=== PATIENT | female | born 1990 | race Caucasian/White ===

== ENCOUNTER 2017-06-12 11:00 | Day surgery (SDC) | payer MEDICAID ==
[~2017-06-12] VITALS: Ht 154.9 cm; Wt 63.5 kg
[2017-06-12 11:23] VITALS: BP_SYST 114
[2017-06-12] MEDS ORDERED: ONDANSETRON HCL 4 MG/2 ML VIAL IVP ONE (11:31)
[2017-06-12] MEDS ORDERED: LR 1,000 ML IV.SOLN IV ONE (11:31)
[2017-06-12] MEDS ORDERED: MIDAZOLAM HCL 5 MG/5 ML VIAL IVP ONE (11:31)
[2017-06-12] MEDS ORDERED: KETOROLAC TROMETHAMINE 30 MG VIAL IVP ONE (11:31)
[2017-06-12] MEDS ORDERED: fentaNYL CITRATE 250 MCG/5 ML AMP IV ONE (11:31)
[2017-06-12] MEDS ORDERED: CEFAZOLIN 2 GM IVPB PREMIX 50 ML IV ONE (11:31)
[2017-06-12] MEDS ORDERED: PROPOFOL 200MG/ 20ML VIAL (DIPRIVAN) IV ONE (11:31)
[2017-06-12] MEDS ORDERED: ROCURONIUM BROMIDE 10 MG/ML (ZEMURON) IV ONE (11:31)
[2017-06-12] MEDS ORDERED: NS 50 ML BAG IV ONE (11:31)
[2017-06-12] MEDS ORDERED: NS IRRIG SOLN 1000 ML IR ONE (11:31)
[2017-06-12] MEDS ORDERED: SEVOFLURANE 15 MIN GAS INH ONE (11:31)
[2017-06-12 11:48] LABS: BASOPHILS # (AUTO) 0.1 K/uL (0.0-0.2); BASOPHILS % (AUTO) 0.6 % (0.0-2.0); EOSINOPHILS # (AUTO) 0.4 K/uL (0.0-0.4); EOSINOPHILS % (AUTO) 4.6 % (0.0-4.0); HEMATOCRIT 39.4 % (36-48); HEMOGLOBIN 12.8 g/dL (12.0-16.0); LYMPHOCYTES # (AUTO) 2.7 K/uL (1.0-5.5); LYMPHOCYTES % (AUTO) 32.6 % (20.5-51.5); MEAN CORPUSCULAR HEMOGLOBIN 27 pg (27-31); MEAN CORPUSCULAR HGB CONC 33 % (32-36); MEAN CORPUSCULAR VOLUME 83 fL (79.0-98.0); MONOCYTES # (AUTO) 0.7 K/uL (0.0-1.0); MONOCYTES % (AUTO) 7.8 % (1.7-9.3); NEUTROPHILS # (AUTO) 4.5 K/uL (1.8-7.7); NEUTROPHILS % (AUTO) 54.4 % (40.0-70.0); PLATELET COUNT (AUTO) 244 K/uL (130-430); RED BLOOD CELL COUNT(AUTO) 4.75 MIL/uL (4.2-6.2); RED CELL DISTRIBUTION WIDTH 18.2 % (9.0-15.0); WHITE BLOOD COUNT (AUTO) 8.4 K/uL (4.8-10.8)
[2017-06-12 11:55] LABS: BILIRUBIN,URINE NEGATIVE (NEGATIVE); BLOOD, URINE NEGATIVE (NEGATIVE); CLARITY/URINE CLEAR (CLEAR); COLOR,URINE YELLOW (YELLOW); GLUCOSE,URINE NEGATIVE (NEGATIVE); KETONES,URINE NEGATIVE (NEGATIVE); LEUKOCYTE ESTERASE ,URINE NEGATIVE (NEGATIVE); NITRITE, URINE NEGATIVE (NEGATIVE); PROTEIN URINE NEGATIVE (NEGATIVE); UROBILINOGEN,URINE 0.2 (0.2-1.0)
[2017-06-12 11:56] LABS: CALCIUM 9.1 mg/dL (8.4-11.0); CREATININE 0.48 mg/dL (0.55-1.30); POTASSIUM 4.5 mmol/L (3.5-5.1)
[2017-06-12 12:01] LABS: ALBUMIN 3.9 g/dL (3.4-4.8); TOTAL BILIRUBIN 0.4 mg/dL (0.0-1.0)
[2017-06-12] MEDS ORDERED: LR 1,000 ML IV SCH (16:57)
[2017-06-12] MEDS ORDERED: ePHEDrine sulfate 50 MG/ML VIAL IVP PRN (17:00)
[2017-06-12] MEDS ORDERED: HYDROmorphone 1 MG INJ. 1 MG/ML AMPUL IVP PRN (17:00)
[2017-06-12] MEDS ORDERED: ONDANSETRON HCL 4 MG/2 ML VIAL IVP PRN ×2 (17:00→17:45)
[2017-06-12] MEDS ORDERED: KETOROLAC TROMETHAMINE 30 MG VIAL IVP PRN (17:00)
[2017-06-12] MEDS ORDERED: MEPERIDINE HCL/PF 25 MG/ML DISP.SYRIN IVP PRN ×2 (17:00)
[2017-06-12] MEDS ORDERED: HYDROmorphone 2 MG/ML VIAL IVP PRN ×2 (17:00)
[2017-06-12] MEDS ORDERED: HYDROcodone/ACETAMIN 5-325 MG TAB (NORCO/ VICODIN) PO PRN (17:45)
[2017-06-12 19:30] VITALS: BP_SYST 103
[2017-06-12 19:45] VITALS: BP_SYST 124
[2017-06-12] MEDS: OXYCODONE/ACETAMINOPHEN 5-325 TABLET PO PRN (20:26)
[2017-06-13 03:52] VITALS: BP_SYST 100
[2017-06-13 07:40] VITALS: BP_SYST 104
[2017-06-13] MEDS: OXYCODONE/ACETAMINOPHEN 5-325 TABLET PO PRN (08:44)
[2017-06-13] MEDS ORDERED: HYDR-1189 PO (09:27)
[2017-06-13 09:30] VITALS: BP_SYST 104
== END 2017-06-13 10:00 | disposition home or self-care (01) ==
LOC: SED 11:00 → SDS 16:09 → SMU 16:25 → SDS 06-13 10:00
PROVIDERS: ATTEND Specialist
DX: Q50.6 Other congenital malformations of fallopian tube and broad ligament (principal)
CPT/HCPCS: 36415; 58661; 74176; 80053; 81003; 85025; 88305; C1727; C1782; J0690; J1885; J2250; J2405; J2704; J3010; J7120

== ENCOUNTER 2018-02-22 12:56 | Observation (INO) | payer BC, MEDICAID ==
[~2018-02-22] VITALS: Ht 154.9 cm; Wt 75.7 kg
[~2018-02-22 12:56] MED LIST: HYDR-1189 PO
[2018-02-22 14:23] LABS: BASOPHILS % (AUTO) 0.7 % (0.0-2.0); EOSINOPHILS % (AUTO) 3.6 % (0.0-4.0); LYMPHOCYTES % (AUTO) 21.7 % (20.5-51.5); MONOCYTES % (AUTO) 7.3 % (1.7-9.3); NEUTROPHILS # (AUTO) 7.6 K/uL (1.8-7.7); NEUTROPHILS % (AUTO) 66.7 % (40.0-70.0)
[2018-02-22 14:24] LABS: BASOPHILS # (AUTO) 0.1 K/uL (0.0-0.2); EOSINOPHILS # (AUTO) 0.4 K/uL (0.0-0.4); HEMATOCRIT 33.3 % (36-48); HEMOGLOBIN 11.4 g/dL (12.0-16.0); LYMPHOCYTES # (AUTO) 2.4 K/uL (1.0-5.5); MEAN CORPUSCULAR HEMOGLOBIN 30 pg (27-31); MEAN CORPUSCULAR HGB CONC 34 % (32-36); MEAN CORPUSCULAR VOLUME 88 fL (79.0-98.0); MONOCYTES # (AUTO) 0.8 K/uL (0.0-1.0); PLATELET COUNT (AUTO) 234 K/uL (130-430); RED BLOOD CELL COUNT(AUTO) 3.77 MIL/uL (4.2-6.2); RED CELL DISTRIBUTION WIDTH 15.3 % (9.0-15.0); WHITE BLOOD COUNT (AUTO) 11.3 K/uL (4.8-10.8)
[2018-02-22] MEDS ORDERED: D5/0.45 NS 1,000 ML IV ONE (19:00)
[2018-02-22] MEDS ORDERED: TERBUTALINE SULFATE 1 MG/ML VIAL SUBCUT ONE (19:00)
[2018-02-22] MEDS ORDERED: MORPHINE SULFATE 10 MG/ML VIAL IM PRN (19:00)
[2018-02-22 19:45] VITALS: BP_SYST 106
[2018-02-22] MEDS: CEFAZOLIN 1 GM IVPB PREMIX 50 ML IV SCH (21:23)
[2018-02-23] MEDS ORDERED: D5/0.45 NS 1,000 ML IV ONE (04:30)
[2018-02-23] MEDS: CEFAZOLIN 1 GM IVPB PREMIX 50 ML IV SCH (05:48)
== END 2018-02-23 13:30 | disposition home or self-care (01) ==
LOC: SPU 12:56
PROVIDERS: ADMIT Specialist; ATTEND Specialist
DX: O34.32 Maternal care for cervical incompetence, second trimester (principal); O30.002 Twin pregnancy, unspecified number of placenta and unspecified number of amniotic sacs, second trimester; Z3A.24 24 weeks gestation of pregnancy
CPT/HCPCS: 36415; 59320; 85025; 87070 ×2; 96365; 96372; 96375; G0378 ×2; J0690; J3105

== ENCOUNTER 2018-03-03 20:25 | Inpatient (IN) | payer BC, MEDICAID ==
[~2018-03-03] VITALS: Ht 154.9 cm; Wt 76.7 kg
[2018-03-04 05:15] VITALS: BP_SYST 100
[2018-03-04] MEDS ORDERED: BETAMET ACET/BETAMET NA PH 30 MG/5 ML VIAL IM ONE (11:00)
[2018-03-05 09:08] LABS: BASOPHILS % (AUTO) 0.1 % (0.0-2.0); EOSINOPHILS % (AUTO) 0.1 % (0.0-4.0); HEMATOCRIT 29.8 % (36-48); HEMOGLOBIN 10.1 g/dL (12.0-16.0); LYMPHOCYTES # (AUTO) 1.7 K/uL (1.0-5.5); LYMPHOCYTES % (AUTO) 14.1 % (20.5-51.5); MEAN CORPUSCULAR HEMOGLOBIN 30 pg (27-31); MEAN CORPUSCULAR HGB CONC 34 % (32-36); MEAN CORPUSCULAR VOLUME 88 fL (79.0-98.0); MONOCYTES # (AUTO) 0.7 K/uL (0.0-1.0); MONOCYTES % (AUTO) 5.8 % (1.7-9.3); NEUTROPHILS # (AUTO) 9.9 K/uL (1.8-7.7); NEUTROPHILS % (AUTO) 79.9 % (40.0-70.0); PLATELET COUNT (AUTO) 260 K/uL (130-430); RED BLOOD CELL COUNT(AUTO) 3.39 MIL/uL (4.2-6.2); RED CELL DISTRIBUTION WIDTH 15.5 % (9.0-15.0); WHITE BLOOD COUNT (AUTO) 12.3 K/uL (4.8-10.8)
[2018-03-05] MEDS ORDERED: METOCLOPRAMIDE HCL 10 MG/2 ML VIAL IVP PRN (09:45)
[2018-03-05] MEDS ORDERED: fentaNYL CITRATE/PF 100 MCG/2 ML AMP IVP PRN (09:45)
[2018-03-05] MEDS ORDERED: ePHEDrine sulfate 50 MG/ML VIAL IVP ONE (09:55)
[2018-03-05] MEDS ORDERED: MIDAZOLAM HCL 5 MG/ML VIAL (VERSED) IV ONE (09:55)
[2018-03-05] MEDS ORDERED: BUPIVACAINE /DEX PF 0.75% SPINAL 2 ML AMP INJ ONE (09:55)
[2018-03-05] MEDS ORDERED: MORPHINE SULFATE 10MG/10ML PF AMP EP ONE (09:55)
[2018-03-05] MEDS ORDERED: D5/0.45 NS 1,000 ML IV.SOLN IV ONE (09:55)
[2018-03-05] MEDS ORDERED: LR 1,000 ML IV.SOLN IV ONE (09:55)
[2018-03-05 10:00] VITALS: BP_SYST 100
[2018-03-05] MEDS ORDERED: BETAMET ACET/BETAMET NA PH 30 MG/5 ML VIAL IM ONE (10:00)
[2018-03-05] MEDS ORDERED: ONDANSETRON HCL 4 MG/2 ML VIAL ONE (10:11)
[2018-03-05] MEDS ORDERED: MAGNESIUM SULFATE IN WATER 100 ML IV ONE (11:45)
[2018-03-05] MEDS: MAGNESIUM SULFATE IN WATER 500 ML IV PRN ×2 (12:22→23:10)
[2018-03-05 18:13] LABS: BASOPHILS % (AUTO) 0.1 % (0.0-2.0); HEMATOCRIT 25.7 % (36-48); HEMOGLOBIN 8.6 g/dL (12.0-16.0); LYMPHOCYTES # (AUTO) 1.2 K/uL (1.0-5.5); LYMPHOCYTES % (AUTO) 8.8 % (20.5-51.5); MEAN CORPUSCULAR HEMOGLOBIN 30 pg (27-31); MEAN CORPUSCULAR HGB CONC 33 % (32-36); MEAN CORPUSCULAR VOLUME 89 fL (79.0-98.0); MONOCYTES # (AUTO) 0.4 K/uL (0.0-1.0); MONOCYTES % (AUTO) 2.9 % (1.7-9.3); NEUTROPHILS # (AUTO) 12.4 K/uL (1.8-7.7); NEUTROPHILS % (AUTO) 88.2 % (40.0-70.0); PLATELET COUNT (AUTO) 243 K/uL (130-430); RED BLOOD CELL COUNT(AUTO) 2.89 MIL/uL (4.2-6.2); RED CELL DISTRIBUTION WIDTH 15.4 % (9.0-15.0)
[2018-03-05] MEDS ORDERED: MAGNESIUM SULFATE IN WATER 500 ML IV SCH (21:45)
== END 2018-03-07 17:15 | disposition home or self-care (01) | DRG 781 ==
LOC: SPU 20:25 → OBSVTOIN 03-05 07:00
PROVIDERS: ADMIT Specialist; ATTEND Specialist
PROC: 0UCC7ZZ Extirpation of Matter from Cervix, Via Natural or Artificial Opening (ICD-10-PCS; principal; 2018-03-07)
PROC: 0UQC7ZZ Repair Cervix, Via Natural or Artificial Opening (ICD-10-PCS; 2018-03-07)
DX: O30.002 Twin pregnancy, unspecified number of placenta and unspecified number of amniotic sacs, second trimester (principal); O99.412 Diseases of the circulatory system complicating pregnancy, second trimester; O26.872 Cervical shortening, second trimester; O34.32 Maternal care for cervical incompetence, second trimester; O99.012 Anemia complicating pregnancy, second trimester; I49.49 Other premature depolarization; O46.92 Antepartum hemorrhage, unspecified, second trimester; Z3A.26 26 weeks gestation of pregnancy
CPT/HCPCS: 36415; 76810; 76815; 83735-TC; 85025; 86592; 86886; 86900; 86901; 94760; G0378; J0702; J2250; J2274; J2405; J3475; J3490; J7120

== ENCOUNTER 2018-05-12 11:30 | Inpatient (IN) | payer BC, MEDICAID ==
[~2018-05-12] VITALS: Ht 154.9 cm; Wt 77.1 kg
[2018-05-12 13:10] VITALS: BP_SYST 117
[2018-05-12] MEDS ORDERED: LR 1,000 ML IV SCH (23:08)
[2018-05-12] MEDS ORDERED: TERBUTALINE SULFATE 1 MG/ML VIAL SUBCUT ONE (23:15)
[2018-05-13] MEDS ORDERED: TERBUTALINE SULFATE 1 MG/ML VIAL SUBCUT ONE ×2 (00:15→02:40)
[2018-05-13] MEDS ORDERED: CEFAZOLIN 2 GM IVPB PREMIX 50 ML IV ONE ×3 (02:45→04:55)
[2018-05-13] MEDS ORDERED: LR 1,000 ML IV SCH ×2 (02:45→04:37)
[2018-05-13 03:22] LABS: HEMATOCRIT 24.3 % (36-48); HEMOGLOBIN 7.7 g/dL (12.0-16.0); MEAN CORPUSCULAR HEMOGLOBIN 24 pg (27-31); MEAN CORPUSCULAR HGB CONC 32 % (32-36); MEAN CORPUSCULAR VOLUME 75 fL (79.0-98.0); PLATELET COUNT (AUTO) 204 K/uL (130-430); RED BLOOD CELL COUNT(AUTO) 3.24 MIL/uL (4.2-6.2); RED CELL DISTRIBUTION WIDTH 20.1 % (9.0-15.0); WHITE BLOOD COUNT (AUTO) 8.5 K/uL (4.8-10.8)
[2018-05-13] MEDS ORDERED: MORPHINE SULFATE 10MG/10ML PF AMP ONE ×2 (03:52→04:55)
[2018-05-13 04:26] LABS: BASOPHILS % (MANUAL) 0 % (0-2); EOSINOPHILS % (MANUAL) 0 % (0-7); LYMPHOCYTES % (MANUAL) 21 % (20-46); MONOCYTES % (MANUAL) 2 % (0-11)
[2018-05-13] MEDS ORDERED: NALBUPHINE HCL 10 MG/ML AMP IVP PRN (04:30)
[2018-05-13] MEDS ORDERED: NALOXONE HCL 0.4 MG/ML AMP (NARCAN) IVP PRN ×2 (04:30)
[2018-05-13] MEDS ORDERED: KETOROLAC TROMETHAMINE 60 MG/2 ML VIAL IM PRN (04:30)
[2018-05-13] MEDS ORDERED: fentaNYL CITRATE/PF 100 MCG/2 ML AMP IVP PRN ×2 (04:30)
[2018-05-13] MEDS ORDERED: MORPHINE SULFATE 10MG/10ML PF AMP SP SCH (04:30)
[2018-05-13] MEDS ORDERED: KETOROLAC TROMETHAMINE 30 MG VIAL IVP PRN (04:30)
[2018-05-13] MEDS ORDERED: ONDANSETRON HCL 4 MG/2 ML VIAL IVP PRN ×2 (04:30)
[2018-05-13] MEDS ORDERED: DIPHENHYDRAMINE INJ 50 MG/ML VIAL IVP PRN (04:30)
[2018-05-13] MEDS ORDERED: OXYTOCIN/0.9 % SODIUM CHLORIDE 1,000 ML IV ONE (04:37)
[2018-05-13 04:45] VITALS: BP_SYST 128
[2018-05-13] MEDS ORDERED: SENNOSIDES/DOCUSATE SODIUM 1 TAB TABLET(SENOKOT-S) PO PRN (04:45)
[2018-05-13] MEDS ORDERED: DOCUSATE SODIUM 100 MG CAPSULE PO PRN (04:45)
[2018-05-13] MEDS ORDERED: MEASLES,MUMPS&RUBELLA VACC/PF 12500 UNIT/0.5 ML VIAL SUBQ PRN (04:45)
[2018-05-13] MEDS ORDERED: ANUSOL 1 EA SUPP.RECT (PREPARATION H) RC PRN (04:45)
[2018-05-13] MEDS ORDERED: BISACODYL 10 MG/SUPPOSITORY RC PRN (04:45)
[2018-05-13] MEDS ORDERED: RHO(D) IMMUNE GLOBULIN/MALTOSE 1500 UNITS/1.3 ML (WINHRO) IM PRN (04:45)
[2018-05-13] MEDS ORDERED: SIMETHICONE 80 MG TAB.CHEW PO PRN (04:45)
[2018-05-13] MEDS ORDERED: OXYCODONE/ACETAMINOPHEN 5-325 TABLET PO PRN ×2 (04:45)
[2018-05-13] MEDS ORDERED: HYDROcodone/ACETAMIN 5-325 MG TAB (NORCO/ VICODIN) PO PRN (04:45)
[2018-05-13] MEDS ORDERED: DIPH-TET-PERTUS Vaccine 0.5 ML VIAL (ADACEL) I.M. PRN (04:45)
[2018-05-13] MEDS ORDERED: ePHEDrine sulfate 50 MG/ML VIAL ONE (04:55)
[2018-05-13] MEDS ORDERED: OXYTOCIN 10 UNIT/ML VIAL ONE (04:55)
[2018-05-13] MEDS ORDERED: NS IRRIG SOLN 1000 ML IR ONE (04:55)
[2018-05-13] MEDS ORDERED: LR 1,000 ML IV.SOLN IV ONE (04:55)
[2018-05-13] MEDS ORDERED: DIPHENHYDRAMINE INJ 50 MG/ML VIAL ONE (05:24)
[2018-05-13] MEDS: KETOROLAC TROMETHAMINE 30 MG VIAL IVP SCH ×2 (11:34→17:41)
[2018-05-13] MEDS: CEFAZOLIN 1 GM IVPB PREMIX 50 ML IV SCH ×2 (11:35→17:41)
[2018-05-13] MEDS ORDERED: TEMAZEPAM 15 MG CAPSULE PO PRN (21:00)
[2018-05-13] MEDS ORDERED: CEFAZOLIN 1 GM IVPB PREMIX 50 ML IV ONE (22:19)
[2018-05-14] MEDS: KETOROLAC TROMETHAMINE 30 MG VIAL IVP SCH ×4 (00:07→18:06)
[2018-05-14 08:42] LABS: BASOPHILS % (AUTO) 0.2 % (0.0-2.0); EOSINOPHILS # (AUTO) 0.1 K/uL (0.0-0.4); EOSINOPHILS % (AUTO) 1.5 % (0.0-4.0); LYMPHOCYTES # (AUTO) 1.6 K/uL (1.0-5.5); LYMPHOCYTES % (AUTO) 18.3 % (20.5-51.5); MEAN CORPUSCULAR HEMOGLOBIN 24 pg (27-31); MEAN CORPUSCULAR HGB CONC 32 % (32-36); MEAN CORPUSCULAR VOLUME 76 fL (79.0-98.0); MONOCYTES # (AUTO) 0.7 K/uL (0.0-1.0); MONOCYTES % (AUTO) 7.5 % (1.7-9.3); NEUTROPHILS # (AUTO) 6.3 K/uL (1.8-7.7); NEUTROPHILS % (AUTO) 72.5 % (40.0-70.0); PLATELET COUNT (AUTO) 186 K/uL (130-430); RED BLOOD CELL COUNT(AUTO) 2.65 MIL/uL (4.2-6.2); WHITE BLOOD COUNT (AUTO) 8.7 K/uL (4.8-10.8)
[2018-05-14 08:48] LABS: HEMOGLOBIN 6.4 g/dL (12.0-16.0)
[2018-05-14] MEDS ORDERED: FERROUS SULFATE 325 MG TABLET.DR PO ONE (09:30)
[2018-05-14] MEDS ORDERED: FERROUS SULFATE 325 MG TABLET.DR PO SCH (15:00)
[2018-05-14] MEDS ORDERED: IBUPROFEN 600 MG TABLET PO SCH (18:00)
== END 2018-05-14 19:15 | disposition home or self-care (01) | DRG 765 ==
LOC: SPU 11:30 → OBSVTOIN 19:15 → SPU 05-13 06:02
PROVIDERS: ADMIT Specialist; ATTEND Specialist
PROC: 10D00Z1 Extraction of Products of Conception, Low, Open Approach (ICD-10-PCS; principal; 2018-05-14)
PROC: 10S07ZZ Reposition Products of Conception, Via Natural or Artificial Opening (ICD-10-PCS; 2018-05-14)
DX: O30.033 Twin pregnancy, monochorionic/diamniotic, third trimester (principal); O60.14X1 Preterm labor third trimester with preterm delivery third trimester, fetus 1; O60.14X2 Preterm labor third trimester with preterm delivery third trimester, fetus 2; O41.03X1 Oligohydramnios, third trimester, fetus 1; O41.03X2 Oligohydramnios, third trimester, fetus 2; Z37.2 Twins, both liveborn; O32.1XX1 Maternal care for breech presentation, fetus 1; O32.2XX2 Maternal care for transverse and oblique lie, fetus 2; O99.02 Anemia complicating childbirth; D64.9 Anemia, unspecified; Z3A.36 36 weeks gestation of pregnancy
CPT/HCPCS: 36415; 59025; 81002-TC; 85007; 85025; 85027; 86886; 86900; 86901; 94760; G0378; J0690; J1200; J1885; J2274; J2405; J2590; J3105; J7120

== ENCOUNTER 2019-11-04 12:00 | Inpatient (IN) | payer MEDICAID ==
[~2019-11-04] VITALS: Ht 154.9 cm; Wt 77.1 kg
[2019-11-04] MEDS ORDERED: LR 1,000 ML IV ONE (12:39)
[2019-11-04] MEDS ORDERED: TERBUTALINE SULFATE 1 MG/ML VIAL SUBCUT ONE (12:45)
[2019-11-04 13:35] LABS: BILIRUBIN,URINE NEGATIVE (NEGATIVE); BLOOD, URINE NEGATIVE (NEGATIVE); CLARITY/URINE CLEAR (CLEAR); COLOR,URINE YELLOW (YELLOW); GLUCOSE,URINE NEGATIVE (NEGATIVE); KETONES,URINE 1+ (NEGATIVE); LEUKOCYTE ESTERASE ,URINE NEGATIVE (NEGATIVE); NITRITE, URINE NEGATIVE (NEGATIVE); PH,URINE 6.5 (5.0-8.0); PROTEIN URINE TRACE (NEGATIVE); UROBILINOGEN,URINE 0.2 (0.2-1.0)
[2019-11-04 13:38] LABS: BASOPHILS % (AUTO) 0.2 % (0.0-2.0); EOSINOPHILS # (AUTO) 0.1 K/uL (0.0-0.4); EOSINOPHILS % (AUTO) 1.3 % (0.0-4.0); HEMATOCRIT 26.3 % (36-48); HEMOGLOBIN 8.7 g/dL (12.0-16.0); LYMPHOCYTES # (AUTO) 2.1 K/uL (1.0-5.5); LYMPHOCYTES % (AUTO) 19.5 % (20.5-51.5); MEAN CORPUSCULAR HEMOGLOBIN 26 pg (27-31); MEAN CORPUSCULAR HGB CONC 33 % (32-36); MEAN CORPUSCULAR VOLUME 78 fL (79.0-98.0); MONOCYTES # (AUTO) 0.7 K/uL (0.0-1.0); MONOCYTES % (AUTO) 6.4 % (1.7-9.3); NEUTROPHILS # (AUTO) 7.6 K/uL (1.8-7.7); NEUTROPHILS % (AUTO) 72.6 % (40.0-70.0); PLATELET COUNT (AUTO) 190 K/uL (130-430); RED BLOOD CELL COUNT(AUTO) 3.39 MIL/uL (4.2-6.2); RED CELL DISTRIBUTION WIDTH 17.7 % (9.0-15.0); WHITE BLOOD COUNT (AUTO) 10.5 K/uL (4.8-10.8)
[2019-11-04 13:44] LABS: BACTERIA,URINE RARE /HPF (None Seen); RBC,URINE 0-3 /HPF (0-3); WBC,URINE 0-3 /HPF (0-3)
[2019-11-04 13:50] VITALS: BP_SYST 118
[2019-11-04] MEDS ORDERED: FLU VACC QS2019-20 36MOS UP/PF 60 MCG/0.5 ML SYRINGE I.M. PRN (18:00)
[2019-11-04] MEDS ORDERED: OXYTOCIN/0.9 % SODIUM CHLORIDE 1,000 ML IV SCH (20:00)
[2019-11-04] MEDS: LR 1,000 ML IV SCH (20:30)
[2019-11-04] MEDS ORDERED: AMPICILLIN SODIUM 2 GM in NS 100 ML IV ONE (22:00)
--- NOTE | 2019-11-04 22:08 | NUR ---
Called by unit at 2129 to inform me that there was a V-Back patient currently in labor with an order for pitocin argumentation. Spoke with nursing staff, found that there were no arrangements for medical staff to be onsite as per policy. Lulu Dalton, OR/OB director notified by phone of situation. She stated that she knew about the v-back and if staff needed to be on site to inform the OR crew. OR space operations officer staff currently in house to do an emergency Appendectomy. Staff informed at 2139. Spoke again with staff at 2149 to verify that all knew of the V-back. All staff aware and will be in house while patient laboring.
[2019-11-04] MEDS ORDERED: AMPICILLIN SODIUM 2 GM VIAL ONE (22:10)
[2019-11-04] MEDS ORDERED: LR 500 ML IV ONE (23:23)
[2019-11-04] MEDS ORDERED: FENT2mCg/mL-ROPIVA0.2%/NS EPID 200 ML EP SCH (23:30)
[2019-11-04] MEDS ORDERED: fentaNYL CITRATE/PF 100 MCG/2 ML AMP ONE (23:36)
[2019-11-04] MEDS ORDERED: ROPIVACAINE HCL/PF 0.2% 200 ML ONE (23:36)
[2019-11-05] MEDS ORDERED: MEPERIDINE HCL/PF 25 MG/ML DISP.SYRIN IVP SCH (00:15)
[2019-11-05] MEDS: LR 1,000 ML IV SCH (01:30)
[2019-11-05] MEDS ORDERED: AMPICILLIN SODIUM 1 GM VIAL ONE (01:55)
[2019-11-05] MEDS ORDERED: AMPICILLIN SODIUM 1 GM in NS 50 ML IV SCH (02:00)
[2019-11-05] MEDS ORDERED: OXYTOCIN 10 UNIT/ML VIAL ONE (04:29)
[2019-11-05] MEDS ORDERED: METHYLERGONOVINE MALEATE 0.2 MG TABLET PO PRN (04:45)
[2019-11-05] MEDS ORDERED: LANOLIN 7 GM OINT. TP PRN (04:45)
[2019-11-05] MEDS ORDERED: OXYTOCIN 10 UNIT/ML VIAL IV ONE (04:45)
[2019-11-05] MEDS ORDERED: WITCH HAZEL LEAF 1 MED.PAD MED.PAD TP PRN (04:45)
[2019-11-05] MEDS ORDERED: OXYCODONE/ACETAMINOPHEN *10*mg/325 mg TABLET PO PRN (04:45)
[2019-11-05] MEDS ORDERED: ANUSOL 1 EA SUPP.RECT (PREPARATION H) RC PRN (04:45)
[2019-11-05] MEDS ORDERED: OXYTOCIN/0.9 % SODIUM CHLORIDE 1,000 ML IV ONE (04:45)
[2019-11-05] MEDS ORDERED: OXYCODONE/ACETAMINOPHEN 5-325 TABLET PO PRN (04:45)
[2019-11-05] MEDS ORDERED: HYDROCORTISONE 0.5%, 28.35 GM TOPICAL CREAM TP PRN (04:45)
[2019-11-05] MEDS ORDERED: DERMOPLAST SPRAY TP PRN (04:45)
[2019-11-05] MEDS: IBUPROFEN 600 MG TABLET PO SCH ×4 (05:17→23:59)
[2019-11-05] MEDS: DOCUSATE SODIUM 100 MG CAPSULE PO PRN ×2 (05:17→21:57)
[2019-11-05] MEDS ORDERED: TEMAZEPAM 15 MG CAPSULE PO PRN (21:00)
[2019-11-06] MEDS: IBUPROFEN 600 MG TABLET PO SCH ×2 (06:21→12:20)
[2019-11-06 08:59] LABS: HEMATOCRIT 23.8 % (36-48); HEMOGLOBIN 7.6 g/dL (12.0-16.0)
[2019-11-06] MEDS ORDERED: LIDOCAINE PF 1% 30ML(POUR BTL) INJ ONE (13:19)
== END 2019-11-06 13:20 | disposition home or self-care (01) | DRG 560 ==
LOC: SPU 12:00
PROVIDERS: ADMIT Specialist; ATTEND Specialist
PROC: 10E0XZZ Delivery of Products of Conception, External Approach (ICD-10-PCS; principal; 2019-11-05)
PROC: 3E0R3BZ Introduction of Anesthetic Agent into Spinal Canal, Percutaneous Approach (ICD-10-PCS; 2019-11-05)
PROC: 00HU33Z Insertion of Infusion Device into Spinal Canal, Percutaneous Approach (ICD-10-PCS; 2019-11-05)
DX: O42.92 Full-term premature rupture of membranes, unspecified as to length of time between rupture and onset of labor (principal); O34.211 Maternal care for low transverse scar from previous cesarean delivery; Z37.0 Single live birth; Z3A.37 37 weeks gestation of pregnancy
CPT/HCPCS: 36415; 81000-TC; 85018-TC; 85025; 86592; 86886; 86900; 86901; J0290; J2001; J2175; J2590; J3010; J7120